=== PATIENT | female | born 1970 | race African-American/Black ===

== ENCOUNTER 2021-02-28 09:09 | Outpatient (CLI) | payer OTHER | END 2021-02-28 09:10 | disposition home or self-care (01) | LOC: BICRAD 09:09 | PROVIDERS: ATTEND Family Medicine | DX: M47.22 Other spondylosis with radiculopathy, cervical region (principal) | CPT/HCPCS: 72040 ==

== ENCOUNTER 2021-09-06 12:01 | Outpatient (CLI) | payer OTHER | END 2021-09-06 12:02 | disposition home or self-care (01) | LOC: BICMAMMO 12:01 | PROVIDERS: ATTEND Family Medicine | DX: Z12.31 Encounter for screening mammogram for malignant neoplasm of breast (principal) | CPT/HCPCS: 77063; 77067 ==